=== PATIENT | male | born 1980 | race Caucasian/White ===

== ENCOUNTER 2018-12-07 10:33 | Day surgery (SDC) | payer OTHER ==
[2018-12-06 11:23] VITALS: BMI 32.1
[2018-12-07] MEDS ORDERED: Lidocaine 1% PF 5 ML VIAL ONE (11:18)
[2018-12-07] MEDS ORDERED: PROPOFOL 200 MG/20 ML VIAL ONE (11:18)
--- NOTE | 2018-12-07 20:58 | OP ---
DATE OF PROCEDURE: 12/07/2018 PROCEDURES PERFORMED: 1. Esophagogastroduodenoscopy with biopsy. 2. Colonoscopy with biopsy and polypectomy. INDICATION FOR PROCEDURES: Nausea, vomiting, chronic diarrhea. DESCRIPTION OF PROCEDURE: After the risks and benefits of the procedures were explained to the patient including risks of bleeding, infection, perforation, reactions to anesthesia, aspiration and/or pain, informed consent was obtained. The patient was then taken to the endoscopy suite, where deep sedation was administered via propofol and anesthesia support. Once adequate sedation was achieved, the standard gastroscope was introduced into the mouth with intubation of the esophagus, stomach, and the proximal small intestine with the findings listed below. Upon completion of this, the patient tolerated the procedure well with no immediate perioperative complications. Upon completion of this portion of the procedure, all equipment was removed from the patient and the bed was rotated 180 degrees in anticipation for the colonoscopy. A digital rectal examination was performed followed by introduction of the standard colonoscope into the rectum, which was then advanced to the terminal ileum without difficulty. The quality of the prep was good with adequate visualization achieved. The patient tolerated the procedure well with no immediate perioperative complications. Upon conclusion of this portion of the procedure, all equipment was removed from the patient and he was transferred to Day Stay in satisfactory condition. EGD FINDINGS: Esophagus: Normal-appearing mucosa was seen in the proximal, mid, and distal esophagus. Mild tortuosity was seen in the distal esophagus as well as a hiatal hernia. The diaphragmatic pinch was well seen at 37 cm past the incisors while the GE junction was well seen at 35 cm denoting a 2 cm hiatal hernia. Otherwise, there was no evidence of erosions, ulcerations, mass lesions, or active/recent bleeding. Stomach: Normal-appearing mucosa was seen in the gastric cardia, fundus, body, greater curvature, antrum, and incisura. There was no evidence of erosions, ulcerations, mass lesions, or active/recent bleeding. Duodenum: Normal-appearing mucosa was seen in both the duodenal bulb and second portion of the duodenum. There was no evidence of erosions, ulcerations, mass lesions, or active/recent bleeding. Random biopsies were obtained from both the duodenal bulb and second portion for possible celiac disease. IMPRESSION: 1. 2 cm hiatal hernia. 2. Otherwise normal upper endoscopy. COLONOSCOPY FINDINGS: Digital rectal exam normal. Colon findings: Normal-appearing mucosa was seen within the terminal ileum up to 15 cm past the ileocecal valve. Normal-appearing mucosa was then seen in the cecum, at the ileocecal valve as well as the appendiceal orifice. Normal-appearing mucosa was then seen within the cecum, ascending, transverse, and descending colons. Random biopsies were obtained from all these regions and placed in a specimen jar for evaluation. A 4 mm semi pedunculated polyp was seen in the sigmoid colon and completely removed with snare cautery polypectomy. It was retrieved and placed in a specimen jar for evaluation. Normal-appearing mucosa was then seen in the rectum with small internal hemorrhoids seen on rectal retroflexion. IMPRESSION: 1. 4 mm semi-pedunculated polyp in the sigmoid colon, status post hot snare polypectomy. 2. Otherwise, normal colonoscopy with small internal hemorrhoids. RECOMMENDATIONS: 1. We will follow up on the biopsy results with further management indicated by pathology report. 2. Would continue the patient on the higher fiber diet given improvement in his diarrhea while on this regimen. 3. Would continue PPI b.i.d. given the hiatal hernia present on examination today. 4. Would have the patient follow up in the GI clinic in 3 weeks for further evaluation and follow up on his diarrhea and nausea/vomiting. 5. Could consider gastric emptying study at that time and/or esophageal swallow given his symptoms of dysphagia. Job ID: [id number]
== END 2018-12-07 15:40 | disposition home or self-care (01) ==
LOC: SDC 10:33
PROVIDERS: ATTEND Internal Medicine
PROC: 0DB98ZX Excision of Duodenum, Via Natural or Artificial Opening Endoscopic, Diagnostic (ICD-10-PCS; principal; 2018-12-07)
PROC: 0DBN8ZX Excision of Sigmoid Colon, Via Natural or Artificial Opening Endoscopic, Diagnostic (ICD-10-PCS; principal; 2018-12-07)
PROC: 0DBL8ZX Excision of Transverse Colon, Via Natural or Artificial Opening Endoscopic, Diagnostic (ICD-10-PCS; principal; 2018-12-07)
PROC: 0DBK8ZX Excision of Ascending Colon, Via Natural or Artificial Opening Endoscopic, Diagnostic (ICD-10-PCS; principal; 2018-12-07)
PROC: 0DBH8ZX Excision of Cecum, Via Natural or Artificial Opening Endoscopic, Diagnostic (ICD-10-PCS; principal; 2018-12-07)
PROC: 0DBM8ZX Excision of Descending Colon, Via Natural or Artificial Opening Endoscopic, Diagnostic (ICD-10-PCS; principal; 2018-12-07)
DX: D12.5 Benign neoplasm of sigmoid colon (principal); K64.8 Other hemorrhoids; K52.9 Noninfective gastroenteritis and colitis, unspecified; K44.9 Diaphragmatic hernia without obstruction or gangrene; G47.30 Sleep apnea, unspecified; F32.9 Major depressive disorder, single episode, unspecified; F41.9 Anxiety disorder, unspecified; K21.9 Gastro-esophageal reflux disease without esophagitis; F17.290 Nicotine dependence, other tobacco product, uncomplicated; E66.9 Obesity, unspecified; Z68.32 Body mass index [BMI] 32.0-32.9, adult; Z79.899 Other long term (current) drug therapy; Z88.0 Allergy status to penicillin
CPT/HCPCS: 88305; J2001; J2704